=== PATIENT | female | born 1975 | race Caucasian/White ===

== ENCOUNTER → 2017-03-12 | Outpatient (CLI) | payer SELFPAY ==
[~2017-03-12] MED LIST: NORCO 5-325 TA1 EACH PO; SYNTHROID100 MCG PO
== END | disposition home or self-care (01) ==
LOC: RAD.S 11:30
DX: E01.0 Iodine-deficiency related diffuse (endemic) goiter (principal); E04.1 Nontoxic single thyroid nodule

== ENCOUNTER → 2017-03-22 | Outpatient (CLI) | payer SELFPAY | END | disposition home or self-care (01) | LOC: RAD.S 12:38 | PROC: 0GBH3ZX Excision of Right Thyroid Gland Lobe, Percutaneous Approach, Diagnostic (ICD-10-PCS; principal; 2017-03-22) | DX: E04.1 Nontoxic single thyroid nodule (principal) ==

== ENCOUNTER → 2017-04-03 | Outpatient (CLI) | payer SELFPAY | END | disposition home or self-care (01) | LOC: RAD.S 10:40 | DX: Z12.31 Encounter for screening mammogram for malignant neoplasm of breast (principal) ==

== ENCOUNTER → 2017-04-08 | Outpatient (CLI) | payer SELFPAY | END | disposition home or self-care (01) | LOC: RAD.S 10:15 | DX: C73 Malignant neoplasm of thyroid gland (principal) ==